=== PATIENT | female | born 1985 | race Caucasian/White ===

== ENCOUNTER 2019-02-07 22:03 | Emergency (ER) | payer MEDICAID ==
[~2019-02-07] VITALS: Ht 152.4 cm; Wt 81.0 kg
[2019-02-07 22:29] VITALS: BP 121/55
== END 2019-02-08 02:43 | disposition left against medical advice (07) ==
LOC: ER 22:03
DX: Z53.21 Procedure and treatment not carried out due to patient leaving prior to being seen by health care provider (principal)